=== PATIENT | female | born 1970 | race Caucasian/White ===

== ENCOUNTER 2021-02-05 07:34 | Outpatient (RCR) | payer OTHER, SELFPAY ==
[2021-02-05 09:43] VITALS: BP 139/65; PULSE 101; TEMP 36.2; O2SAT 97
[2021-02-05] MEDS: ACETAMINOPHEN 325 MG TABLET 650 MG PO (09:46)
[2021-02-05] MEDS: FAMOTIDINE 20 MG TABLET PO (09:47)
[2021-02-05] MEDS: diphenhydrAMINE HCl CAP 25 MG CAPSULE PO (09:47)
[2021-02-05 11:09] VITALS: BP 130/75
== END 2021-02-05 17:00 ==
LOC: AMCINF 07:34
PROVIDERS: PCP Family Medicine; Visit Provider Internal Medicine Hematology & Oncology
DX: U07.1 COVID-19 (principal); I10 Essential (primary) hypertension
CPT/HCPCS: A9270; M0245; Q0245